=== PATIENT | female | born 1985 | race Caucasian/White ===

== ENCOUNTER 2016-11-12 09:10 | Emergency (ER) | payer OTHER ==
[2016-11-12] MEDS ORDERED: IBUPROFEN 600 MG TAB As Ordered ONE (09:50)
[2016-11-12] MEDS ORDERED: IPRATROPIUM 0.5MG/ALBUTEROL 2.5MG INH SOL UD 3ML (DUONEB)(J7620) As Ordered ONE (09:51)
[2016-11-12 10:05] LABS: MEAN CORPUSCULAR HEMOGLOBIN 28.9 pg (27.0-33.0); MEAN CORPUSCULAR VOLUME 84.9 fl (80.0-96.0); RED CELL DISTRIBUTION WIDTH 12.8 % (11.5-14.5); WHITE BLOOD COUNT 7.5 K/mm3 (4.0-10.0)
[2016-11-12 10:34] LABS: ANION GAP 10 MEQ/L (8-16); BLOOD UREA NITROGEN 11 MG/DL (7-18); CALCIUM LEVEL 8.7 MG/DL (8.5-10.1); CARBON DIOXIDE LEVEL 23 MEQ/L (21-32); CHLORIDE LEVEL 108 MEQ/L (98-107); CREATININE FOR GFR 0.71 MG/DL (0.55-1.02); GLOMERULAR FILTRATION RATE > 60.0 (>60); GLUCOSE, FASTING 90 MG/DL (70-105); POTASSIUM SERUM 4.2 MEQ/L (3.5-5.1); SODIUM LEVEL 141 MEQ/L (136-145)
--- NOTE | 2016-11-12 10:50 | REP ---
Clinical: Chest pain . Comparison: None . Technique: PA and lateral. Findings: The mediastinum and cardiac silhouette are normal. The lung stallings are clear and without acute consolidation, effusion, or pneumothorax. The skeletal structures are intact and normal. Impression: 1. No acute cardiopulmonary process. Signed by Lincoln Hood MD 11/12/2016 10:41 A
--- NOTE | 2016-11-12 11:19 | EDDOCDS ---
Physician Documentation [facility] Name: Harmony Camara Age: 31 yrs Sex: Female : 1985 Arrival Date: 11/12/2016 Time: 09:10 Bed PD Private MD: Other - Complete Info On Cds Disposition: 11/12/16 10:51 Discharged to Home/Self Care. Impression: Pleurisy. - Condition is Stable. - Discharge Instructions: Pleurisy. - Prescriptions for Ibuprofen 600 mg Oral Tablet - take 1 tablet by ORAL route every 6 hours As needed take with food; 30 tablet. - Medication Reconciliation, Local Pharmacy Hours form. - Follow up: HALEY Whyte; When: 2 - 3 days; Reason: Recheck today's complaints, Continuance of care. - Problem is new. - Symptoms are unchanged. Historical: - Allergies: PENICILLINS; Ambien; Latex; - Home Meds: 1. Albuterol Inhl as needed - PMHx: Asthma; - PSHx: ; Appendectomy; Tubal ligation; - Social history: Smoking status: Patient states was never smoker of tobacco. No barriers to communication noted, The patient speaks fluent Estonian, Speaks appropriately for age. - Family history: Not pertinent. - : The pt / caregiver states he / she is not on anticoagulants. Home medication list is obtained from the patient. - Exposure Risk Screening:: None identified. 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 5 in. (165.10 cm) (R); Pain 4/10; 11:16 BP 134 / 70; Pulse 81; Resp 18; Temp 99.7(TE); Pulse Ox 98% on R/A; Pain 0/10; ar3 09:12 Body Mass Index 32.95 (89.81 kg, 165.10 cm) gr2 MDM: 09:42 Albuterol-Ipratropium 3 ml Inhalation once ordered. ke 09:42 Call Respiratory ordered. ke 09:42 Ibuprofen 600 mg PO once ordered. ke 09:43 CIP Ordered. EDMS 09:43 Troponin Ordered. EDMS 09:43 CBC Ordered. EDMS 09:43 BMP Ordered. EDMS 09:43 Chest, 2 View (pa\E\lat) Ordered. EDMS 09:47 Call Respiratory complete. jc4 09:51 Financial registration complete. lg 10:23 [facility] Payment Agreement was scanned into [employer] and attached to record. lg 10:45 BMP Reviewed. ke 10:45 CIP Reviewed. ke 10:45 Troponin Reviewed. ke 10:45 CBC Reviewed. ke Administered Medications: 09:54 Drug: Ibuprofen 600 mg [ibuprofen 600 mg tablet (1 tabs)] Route: PO; jc4 09:56 Drug: Albuterol-Ipratropium 3 ml [ipratropium-albuterol 0.5 mg-3 mg(2.5 mg base)/3 mL js11 nebulization soln (3 mL)] Route: Inhalation; Signatures: Dispatcher [employer] EDMS Stacy Bone, Reg Reg lg Jamil Rahman, FRUIT FARMWORKER FRUIT FARMWORKER Elise Quinteros RN RN jc4 Nanette Bocanegra,RN RN Amilcar Dodge js11 The chart was reviewed and I authenticate all verbal orders and agree with the evaluation and treatment provided.Attachments: 10:23 [facility] Payment Agreement lg MTDD
--- NOTE | 2016-11-12 11:19 | EDDOCDS ---
Nurse's Notes [facility] Name: Harmony Camara Age: 31 yrs Sex: Female : 1985 Arrival Date: 11/12/2016 Time: 09:10 Bed PD Private MD: Other - Complete Info On Cds Diagnosis: Pleurisy Presentation: 11/12 09:18 Presenting complaint: Patient states: pt reports when going out in the cold last night ead and this morning she felt chest tightness and sob. denies cough or congestion. denies sob/chest pain while sitting inside. Pt called her primary care and was instructed to come here. Adult Sepsis Screening: The patient does not have new or worsening altered mentation. Patient's respiratory rate is less than 22. Systolic blood pressure is greater than 100. Patient has a qSOFA score of 0- Negative Sepsis Screen. Suicide/Homicide risk assessment- the patient denies having any suicidal and/or homicidal ideations and does not present with any other emotional, behavioral or mental health complaints. Status: The patient is a dependent. Transition of care: patient was not received from another setting of care. 09:18 Acuity: LAWSON Level 3 ead 09:18 Method Of Arrival: Walkin/Carried/Asstd ead Triage Assessment: 09:22 General: Appears in no apparent distress, comfortable, Behavior is appropriate for age, ead cooperative. Pain: Location: chest Pain currently is 3 out of 10 on a pain scale. HIV screening NA for this visit Offered previously. Neurological: No deficits noted. Cardiovascular: Capillary refill < 3 seconds. Respiratory: Onset: The symptoms/episode began/occurred yesterday, Airway is patent Respiratory effort is even, unlabored. Derm: Skin is pink, warm & dry. 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 Albuterol Inhl as needed - PMHx: Asthma; - PSHx: ; Appendectomy; Tubal ligation; - Social history: Smoking status: Patient states was never smoker of tobacco. No barriers to communication noted, The patient speaks fluent Telugu, Speaks appropriately for age. - Family history: Not pertinent. - : The pt / caregiver states he / she is not on anticoagulants. Home medication list is obtained from the patient. - Exposure Risk Screening:: None identified. Screenin:54 Screening information is obtained from the patient. Fall risk: No risks identified. jc4 Assistance ADL's: requires no assistance with activities of daily living. home support is adequate. 09:55 Abuse/DV Screen: The patient / caregiver reports he/she is: not in a situation that jc4 causes fear, pain or injury. Nutritional screening: No deficits noted. Advance Directives: Currently, there is no health care proxy. There is no active DNR order. There is no living will. There is no Power of Osteopathy Doctor. Assessment: 09:56 General: Appears in no apparent distress, comfortable, Behavior is cooperative, jc4 pleasant. Neurological: Level of Consciousness is awake, alert, Oriented to person, place, time. Cardiovascular: Heart tones S1 S2 present. Respiratory: Airway is patent Respiratory effort is even, unlabored, Respiratory pattern is regular, symmetrical, Breath sounds are clear bilaterally. Derm: Skin is pink, warm & dry. 11:17 General: Appears in no apparent distress, Behavior is cooperative, pleasant. jc4 Neurological: Level of Consciousness is awake, alert, Oriented to person, place, time. Respiratory: Airway is patent Respiratory effort is even, unlabored, Respiratory pattern is regular, symmetrical. Derm: Skin is pink, warm & dry. Vital Signs: 09:12 BP 105 / 70; Pulse 90; Resp 18 S; Temp 97.2(O); Pulse Ox 100% on R/A; Weight 89.81 kg gr2 (R); Height 5 ft. 5 in. (165.10 cm) (R); Pain 4/10; 11:16 BP 134 / 70; Pulse 81; Resp 18; Temp 99.7(TE); Pulse Ox 98% on R/A; Pain 0/10; ar3 09:12 Body Mass Index 32.95 (89.81 kg, 165.10 cm) gr2 Vitals: 09:12 Log In Time: November 12, 2016 at 09:12. gr2 ED Course: 09:11 Patient visited by Shay Michaels. gr2 09:11 Patient moved to Waiting gr2 09:12 Other - Complete Info On Cds is Private Physician. gr2 09:13 Patient visited by Shay Michaels. gr2 09:13 Patient moved to Pre RCE gr2 09:21 Triage Initiated ead 09:36 Patient moved to Triage 1 jc4 09:37 [facility] ke 09:37 Patient visited by Jamil Rahman FNP. ke 09:37 Patient visited by Jamil Rahman FNP. ke 09:46 Patient moved to PD / jc4 09:57 The patient / caregiver is instructed regarding the plan of care and ED course. jc4 10:10 Patient visited by Jamil Rahman FNP. ke 10:22 Patient name changed from Harmony\S\\S\Stock\S\ to Harmony\S\Tania\S\Stock. EDMS 10:23 [facility] Payment Agreement was scanned into [email or web address] and attached to record. lg 10:35 Patient visited by Jamil Rahman FNP. ke 10:50 Pato [facility] is Referral Physician. ke 10:59 Chest, 2 View (pa\E\lat) Returned. EDMS 11:16 Patient visited by Barbara Belcher PCA. ar3 11:18 No IV's were initiated during this patient's visit. No procedures done that require [facility] assistance. Administered Medications: 09:54 Drug: Ibuprofen 600 mg [ibuprofen 600 mg tablet (1 tabs)] Route: PO; jc4 09:56 Drug: Albuterol-Ipratropium 3 ml [ipratropium-albuterol 0.5 mg-3 mg(2.5 mg base)/3 mL js11 nebulization soln (3 mL)] Route: Inhalation; RT: 09:56 Initial Med Neb Given as ordered Patient was instructed and evaluated on procedure js11 Patient tolerated procedure well without adverse effect. Oxygen is room air. Respiratory: Breath sounds are clear bilaterally. Order Results: Lab Order: CIP; SPEC'M 11/12/16 09:54 Test: CPK CREATINE PHOSPHOKINASE; Value: 94; Range: 26-192; Units: U/L; Status: F Test: CK-MB VALUE MASS; Value: 1.0; Range: 0.0-3.6; Units: NG/ML; Status: F Test: MB/CK RELATIVE INDEX; Value: 1.06; Range: < OR =4; Status: F Test Note: ; DIAGNOSIS CRITERIA MMB ng/ml Relative Index (RI) NON-AMI < or = 5 N/A [place] > 5 < or = 4 AMI > 5 > 4 Lab Order: Troponin; SPEC11/12/16 09:54 Test: TROPONIN I; Value: < 0.02; Range: < 0.10; Units: NG/ML; Status: F Test Note: ; Troponin I Reference Interval for [employer] LOCI: 99th Percentile= 0.00-0.045 ng/ml Risk Stratification: <= 0.10 ng/ml Decreased Risk for Adverse Clinical Events. 0.10-1.50 ng/ml Increased Risk for Adverse Clinical Events. Evaluation of additional criterion and/or repeat testing in 2-6 hours is suggested to rule out myocardial damage. >= 1.50 ng/ml Indicative of Myocardial Injury. Lab Order: CBC; SPEC11/12/16 09:54 Test: WHITE BLOOD COUNT; Value: 7.5; Range: 4.0-10.0; Units: K/mm3; Status: F Test: RED BLOOD COUNT; Value: 4.81; Range: 4.00-5.40; Units: M/mm3; Status: F Test: HEMOGLOBIN; Value: 13.9; Range: 12.0-16.0; Units: g/dl; Status: F Test: HEMATOCRIT; Value: 40.9; Range: 36.0-47.0; Units: %; Status: F Test: MEAN CORPUSCULAR VOLUME; Value: 84.9; Range: 80.0-96.0; Units: fl; Status: F Test: MEAN CORPUSCULAR HEMOGLOBIN; Value: 28.9; Range: 27.0-33.0; Units: pg; Status: F Test: MEAN CORPUSCULAR HGB CONC; Value: 34.0; Range: 32.0-36.5; Units: g/dl; Status: F Test: RED CELL DISTRIBUTION WIDTH; Value: 12.8; Range: 11.5-14.5; Units: %; Status: F Test: PLATELET COUNT, AUTOMATED; Value: 187; Range: 150-450; Units: k/mm3; Status: F Lab Order: BMP; SPEC11/12/16 09:54 Test: GLUCOSE, FASTING; Value: 90; Range: 70-105; Units: MG/DL; Status: F Test: BLOOD UREA NITROGEN; Value: 11; Range: 7-18; Units: MG/DL; Status: F Test: CREATININE FOR GFR; Value: 0.71; Range: 0.55-1.02; Units: MG/DL; Status: F Test: GLOMERULAR FILTRATION RATE; Value: > 60.0; Range: >60; Status: F Test: SODIUM LEVEL; Value: 141; Range: 136-145; Units: MEQ/L; Status: F Test: POTASSIUM SERUM; Value: 4.2; Range: 3.5-5.1; Units: MEQ/L; Status: F Test: CHLORIDE LEVEL; Value: 108; Range: 98-107; Abnormal: Above high normal; Units: MEQ/L; Status: F Test: CARBON DIOXIDE LEVEL; Value: 23; Range: 21-32; Units: MEQ/L; Status: F Test: ANION GAP; Value: 10; Range: 8-16; Units: MEQ/L; Status: F Test: CALCIUM LEVEL; Value: 8.7; Range: 8.5-10.1; Units: MG/DL; Status: F Test Note: ; Units are mL/min/1.73 m2 Chronic Kidney Disease Staging per NKF: Stage I & II GFR >=60 Normal to Mildly Decreased Stage III GFR 30-59 Moderately Decreased Stage IV GFR 15-29 Severely Decreased Stage V GFR <15 Very Little GFR Left ESRD GFR <15 on PROP CUTTER Radiology Order: Chest, 2 View (pa\E\lat) Test: Chest, 2 View (pa\E\lat) REASON FOR EXAMINATION: Chest Pain; Clinical: Chest pain .; ; Comparison: None .; ; Technique: PA and lateral.; ; Findings:; The mediastinum and cardiac silhouette are normal. The lung stallings are clear and; without acute consolidation, effusion, or pneumothorax. The skeletal structures; are intact and normal.; ; Impression:; 1. No acute cardiopulmonary process.; ; ; Signed by; Lincoln Hood MD 11/12/2016 10:41 A; Outcome: 10:51 Discharge ordered by Provider. ke 11:18 Discharge Assessment: Patient awake, alert and oriented x 3. No cognitive and/or jc4 functional deficits noted. Patient verbalized understanding of disposition instructions. patient administered narcotics - no. The following High Risk Discharge criteria are identified: None. Discharged to home ambulatory. Condition: stable. Discharge instructions given to patient, Instructed on discharge instructions, follow up and referral plans. medication usage, Demonstrated understanding of instructions, medications, Pt was receptive of discharge instructions/ teaching. No special radiology studies were completed. Property :Personal belongings accompany Pt. 11:19 Patient left the ED. jc4 Signatures: Dispatcher [employer] EDMS Stacy Bone, Len Reg lg Jamil Rahman, TECHNOLOGY PROJECT MANAGER TECHNOLOGY PROJECT MANAGER Barbara Smith, RENA BOUNTY TRAPPER ar3 Elise Rouse, RN RN jc4 Amilcar Nix js11 Shay Michaels gr2 Nanette Bocanegra,RN RN ead MTDD
--- NOTE | 2016-11-14 12:19 | EDDOCDS ---
Physician Documentation [facility] Name: Harmony Camara Age: 31 yrs Sex: Female : 1985 Arrival Date: 11/12/2016 Time: 09:10 Bed PD Private MD: Other - Complete Info On Cds Disposition: 11/12/16 10:51 Discharged to Home/Self Care. Impression: Pleurisy. - Condition is Stable. - Discharge Instructions: Pleurisy. - Prescriptions for Ibuprofen 600 mg Oral Tablet - take 1 tablet by ORAL route every 6 hours As needed take with food; 30 tablet. - Medication Reconciliation, Local Pharmacy Hours form. - Follow up: HALEY Whyte; When: 2 - 3 days; Reason: Recheck today's complaints, Continuance of care. - Problem is new. - Symptoms are unchanged. Historical: - Allergies: PENICILLINS; Ambien; Latex; - Home Meds: 1. Albuterol Inhl as needed - PMHx: Asthma; - PSHx: ; Appendectomy; Tubal ligation; - Social history: Smoking status: Patient states was never smoker of tobacco. No barriers to communication noted, The patient speaks fluent Mohawk, Speaks appropriately for age. - Family history: Not pertinent. - : The pt / caregiver states he / she is not on anticoagulants. Home medication list is obtained from the patient. - Exposure Risk Screening:: None identified. 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 5 in. (165.10 cm) (R); Pain 4/10; 11:16 BP 134 / 70; Pulse 81; Resp 18; Temp 99.7(TE); Pulse Ox 98% on R/A; Pain 0/10; ar3 09:12 Body Mass Index 32.95 (89.81 kg, 165.10 cm) gr2 MDM: 09:42 Albuterol-Ipratropium 3 ml Inhalation once ordered. ke 09:42 Call Respiratory ordered. ke 09:42 Ibuprofen 600 mg PO once ordered. ke 09:43 CIP Ordered. EDMS 09:43 Troponin Ordered. EDMS 09:43 CBC Ordered. EDMS 09:43 BMP Ordered. EDMS 09:43 Chest, 2 View (pa\E\lat) Ordered. EDMS 09:47 Call Respiratory complete. jc4 09:51 Financial registration complete. lg 10:23 [facility] Payment Agreement was scanned into [employer] and attached to record. lg 10:45 BMP Reviewed. ke 10:45 CIP Reviewed. ke 10:45 Troponin Reviewed. ke 10:45 CBC Reviewed. ke 13:27 T-Sheet-- Draft Copy was scanned into [employer] and attached to record. gb Administered Medications: 09:54 Drug: Ibuprofen 600 mg [ibuprofen 600 mg tablet (1 tabs)] Route: PO; jc4 09:56 Drug: Albuterol-Ipratropium 3 ml [ipratropium-albuterol 0.5 mg-3 mg(2.5 mg base)/3 mL js11 nebulization soln (3 mL)] Route: Inhalation; Signatures: Dispatcher [employer] EDMS Isabelle Barriga, Reg Reg gb Stacy Bone, Reg Reg lg Jamil Rahman, POINT OF CARE TECHNICIAN POINT OF CARE TECHNICIAN Elise Quinteros RN RN jc4 Nanette Bocanegra,RN RN Amilcar Dodge js11 The chart was reviewed and I authenticate all verbal orders and agree with the evaluation and treatment provided.Attachments: 10:23 [facility] Payment Agreement lg 13:27 T-Sheet-- Draft Copy gb Chart Complete MTDD
--- NOTE | 2016-11-14 12:19 | EDDOCDS ---
Physician Documentation [facility] Name: Harmony Camara Age: 31 yrs Sex: Female : 1985 Arrival Date: 11/12/2016 Time: 09:10 Bed PD Private MD: Other - Complete Info On Cds Disposition: 11/12/16 10:51 Discharged to Home/Self Care. Impression: Pleurisy. - Condition is Stable. - Discharge Instructions: Pleurisy. - Prescriptions for Ibuprofen 600 mg Oral Tablet - take 1 tablet by ORAL route every 6 hours As needed take with food; 30 tablet. - Medication Reconciliation, Local Pharmacy Hours form. - Follow up: HALEY Whyte; When: 2 - 3 days; Reason: Recheck today's complaints, Continuance of care. - Problem is new. - Symptoms are unchanged. Historical: - Allergies: PENICILLINS; Ambien; Latex; - Home Meds: 1. Albuterol Inhl as needed - PMHx: Asthma; - PSHx: ; Appendectomy; Tubal ligation; - Social history: Smoking status: Patient states was never smoker of tobacco. No barriers to communication noted, The patient speaks fluent Japanese, Speaks appropriately for age. - Family history: Not pertinent. - : The pt / caregiver states he / she is not on anticoagulants. Home medication list is obtained from the patient. - Exposure Risk Screening:: None identified. 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 5 in. (165.10 cm) (R); Pain 4/10; 11:16 BP 134 / 70; Pulse 81; Resp 18; Temp 99.7(TE); Pulse Ox 98% on R/A; Pain 0/10; ar3 09:12 Body Mass Index 32.95 (89.81 kg, 165.10 cm) gr2 MDM: 09:42 Albuterol-Ipratropium 3 ml Inhalation once ordered. ke 09:42 Call Respiratory ordered. ke 09:42 Ibuprofen 600 mg PO once ordered. ke 09:43 CIP Ordered. EDMS 09:43 Troponin Ordered. EDMS 09:43 CBC Ordered. EDMS 09:43 BMP Ordered. EDMS 09:43 Chest, 2 View (pa\E\lat) Ordered. EDMS 09:47 Call Respiratory complete. jc4 09:51 Financial registration complete. lg 10:23 [facility] Payment Agreement was scanned into [employer] and attached to record. lg 10:45 BMP Reviewed. ke 10:45 CIP Reviewed. ke 10:45 Troponin Reviewed. ke 10:45 CBC Reviewed. ke 13:27 T-Sheet-- Draft Copy was scanned into [employer] and attached to record. gb Administered Medications: 09:54 Drug: Ibuprofen 600 mg [ibuprofen 600 mg tablet (1 tabs)] Route: PO; jc4 09:56 Drug: Albuterol-Ipratropium 3 ml [ipratropium-albuterol 0.5 mg-3 mg(2.5 mg base)/3 mL js11 nebulization soln (3 mL)] Route: Inhalation; Signatures: Dispatcher [employer] EDMS Isabelle Barriga, Reg Reg gb Stacy Bone, Reg Reg lg Jamil Rahman, CLAY MINER CLAY MINER Elise Quinteros RN RN jc4 Nanette Bocanegra,RN RN Amilcar Dodge js11 The chart was reviewed and I authenticate all verbal orders and agree with the evaluation and treatment provided.Attachments: 10:23 [facility] Payment Agreement lg 13:27 T-Sheet-- Draft Copy gb Chart Complete MTDD
--- NOTE | 2016-11-14 12:19 | EDDOCDS ---
Nurse's Notes [facility] Name: Harmony Camara Age: 31 yrs Sex: Female : 1985 Arrival Date: 11/12/2016 Time: 09:10 Bed PD Private MD: Other - Complete Info On Cds Diagnosis: Pleurisy Presentation: 11/12 09:18 Presenting complaint: Patient states: pt reports when going out in the cold last night ead and this morning she felt chest tightness and sob. denies cough or congestion. denies sob/chest pain while sitting inside. Pt called her primary care and was instructed to come here. Adult Sepsis Screening: The patient does not have new or worsening altered mentation. Patient's respiratory rate is less than 22. Systolic blood pressure is greater than 100. Patient has a qSOFA score of 0- Negative Sepsis Screen. Suicide/Homicide risk assessment- the patient denies having any suicidal and/or homicidal ideations and does not present with any other emotional, behavioral or mental health complaints. Status: The patient is a dependent. Transition of care: patient was not received from another setting of care. 09:18 Acuity: LAWSON Level 3 ead 09:18 Method Of Arrival: Walkin/Carried/Asstd ead Triage Assessment: 09:22 General: Appears in no apparent distress, comfortable, Behavior is appropriate for age, ead cooperative. Pain: Location: chest Pain currently is 3 out of 10 on a pain scale. HIV screening NA for this visit Offered previously. Neurological: No deficits noted. Cardiovascular: Capillary refill < 3 seconds. Respiratory: Onset: The symptoms/episode began/occurred yesterday, Airway is patent Respiratory effort is even, unlabored. Derm: Skin is pink, warm & dry. PEER SPECIALIST: 09:22 LMP 10/2016 ead Historical: - Allergies: PENICILLINS; Ambien; Latex; - Home Meds: 1. Albuterol Inhl as needed - PMHx: Asthma; - PSHx: ; Appendectomy; Tubal ligation; - Social history: Smoking status: Patient states was never smoker of tobacco. No barriers to communication noted, The patient speaks fluent German, Speaks appropriately for age. - Family history: Not pertinent. - : The pt / caregiver states he / she is not on anticoagulants. Home medication list is obtained from the patient. - Exposure Risk Screening:: None identified. Screenin:54 Screening information is obtained from the patient. Fall risk: No risks identified. jc4 Assistance ADL's: requires no assistance with activities of daily living. home support is adequate. 09:55 Abuse/DV Screen: The patient / caregiver reports he/she is: not in a situation that jc4 causes fear, pain or injury. Nutritional screening: No deficits noted. Advance Directives: Currently, there is no health care proxy. There is no active DNR order. There is no living will. There is no Power of Curriculum And Instruction Director. Assessment: 09:56 General: Appears in no apparent distress, comfortable, Behavior is cooperative, jc4 pleasant. Neurological: Level of Consciousness is awake, alert, Oriented to person, place, time. Cardiovascular: Heart tones S1 S2 present. Respiratory: Airway is patent Respiratory effort is even, unlabored, Respiratory pattern is regular, symmetrical, Breath sounds are clear bilaterally. Derm: Skin is pink, warm & dry. 11:17 General: Appears in no apparent distress, Behavior is cooperative, pleasant. jc4 Neurological: Level of Consciousness is awake, alert, Oriented to person, place, time. Respiratory: Airway is patent Respiratory effort is even, unlabored, Respiratory pattern is regular, symmetrical. Derm: Skin is pink, warm & dry. Vital Signs: 09:12 BP 105 / 70; Pulse 90; Resp 18 S; Temp 97.2(O); Pulse Ox 100% on R/A; Weight 89.81 kg gr2 (R); Height 5 ft. 5 in. (165.10 cm) (R); Pain 4/10; 11:16 BP 134 / 70; Pulse 81; Resp 18; Temp 99.7(TE); Pulse Ox 98% on R/A; Pain 0/10; ar3 09:12 Body Mass Index 32.95 (89.81 kg, 165.10 cm) gr2 Vitals: 09:12 Log In Time: November 12, 2016 at 09:12. gr2 ED Course: 09:11 Patient visited by Shay Michaels. gr2 09:11 Patient moved to Waiting gr2 09:12 Other - Complete Info On Cds is Private Physician. gr2 09:13 Patient visited by Shay Michaels. gr2 09:13 Patient moved to Pre RCE gr2 09:21 Triage Initiated ead 09:36 Patient moved to Triage 1 jc4 09:37 [facility] ke 09:37 Patient visited by Jamil Rahman FNP. ke 09:37 Patient visited by Jamil Rahman FNP. ke 09:46 Patient moved to PD jc4 09:57 The patient / caregiver is instructed regarding the plan of care and ED course. jc4 10:10 Patient visited by Jamil Rahman FNP. ke 10:22 Patient name changed from Harmony\S\\S\Stock\S\ to Harmony\S\Tania\S\Stock. EDMS 10:23 [facility] [place] Payment Agreement was scanned into [employer] and attached to record. lg 10:35 Patient visited by Jamli Rahman FNP. ke 10:50 [place] [facility] [place] Physician. ke 10:59 Chest, 2 View (pa\E\lat) Returned. EDMS 11:16 Patient visited by Barbara Belcher PCA. ar3 11:18 No IV's were initiated during this patient's visit. No procedures done that require [facility] assistance. 13:27 T-Sheet-- Draft Copy was scanned into [employer] and attached to record. gb Administered Medications: 09:54 Drug: Ibuprofen 600 mg [ibuprofen 600 mg tablet (1 tabs)] Route: PO; jc4 09:56 Drug: Albuterol-Ipratropium 3 ml [ipratropium-albuterol 0.5 mg-3 mg(2.5 mg base)/3 mL js11 nebulization soln (3 mL)] Route: Inhalation; RT: 09:56 Initial Med Neb Given as ordered Patient was instructed and evaluated on procedure js11 Patient tolerated procedure well without adverse effect. Oxygen is room air. Respiratory: Breath sounds are clear bilaterally. Order Results: Lab Order: CIP; SPEC'M 11/12/16 09:54 Test: CPK CREATINE PHOSPHOKINASE; Value: 94; Range: 26-192; Units: U/L; Status: F Test: CK-MB VALUE MASS; Value: 1.0; Range: 0.0-3.6; Units: NG/ML; Status: F Test: MB/CK RELATIVE INDEX; Value: 1.06; Range: < OR =4; Status: F Test Note: ; DIAGNOSIS CRITERIA MMB ng/ml Relative Index (RI) NON-AMI < or = 5 N/A [place] > 5 < or = 4 AMI > 5 > 4 Lab Order: Troponin; 11/12/16 09:54 Test: TROPONIN I; Value: < 0.02; Range: < 0.10; Units: NG/ML; Status: F Test Note: ; Troponin I Reference Interval for [employer] 3 LOCI: 99th Percentile= 0.00-0.045 ng/ml Risk Stratification: <= 0.10 ng/ml Decreased Risk for Adverse Clinical Events. 0.10-1.50 ng/ml Increased Risk for Adverse Clinical Events. Evaluation of additional criterion and/or repeat testing in 2-6 hours is suggested to rule out myocardial damage. >= 1.50 ng/ml Indicative of Myocardial Injury. Lab Order: CBC; 11/12/16 09:54 Test: WHITE BLOOD COUNT; Value: 7.5; Range: 4.0-10.0; Units: K/mm3; Status: F Test: RED BLOOD COUNT; Value: 4.81; Range: 4.00-5.40; Units: M/mm3; Status: F Test: HEMOGLOBIN; Value: 13.9; Range: 12.0-16.0; Units: g/dl; Status: F Test: HEMATOCRIT; Value: 40.9; Range: 36.0-47.0; Units: %; Status: F Test: MEAN CORPUSCULAR VOLUME; Value: 84.9; Range: 80.0-96.0; Units: fl; Status: F Test: MEAN CORPUSCULAR HEMOGLOBIN; Value: 28.9; Range: 27.0-33.0; Units: pg; Status: F Test: MEAN CORPUSCULAR HGB CONC; Value: 34.0; Range: 32.0-36.5; Units: g/dl; Status: F Test: RED CELL DISTRIBUTION WIDTH; Value: 12.8; Range: 11.5-14.5; Units: %; Status: F Test: PLATELET COUNT, AUTOMATED; Value: 187; Range: 150-450; Units: k/mm3; Status: F Lab Order: BMP; 11/12/16 09:54 Test: GLUCOSE, FASTING; Value: 90; Range: 70-105; Units: MG/DL; Status: F Test: BLOOD UREA NITROGEN; Value: 11; Range: 7-18; Units: MG/DL; Status: F Test: CREATININE FOR GFR; Value: 0.71; Range: 0.55-1.02; Units: MG/DL; Status: F Test: GLOMERULAR FILTRATION RATE; Value: > 60.0; Range: >60; Status: F Test: SODIUM LEVEL; Value: 141; Range: 136-145; Units: MEQ/L; Status: F Test: POTASSIUM SERUM; Value: 4.2; Range: 3.5-5.1; Units: MEQ/L; Status: F Test: CHLORIDE LEVEL; Value: 108; Range: 98-107; Abnormal: Above high normal; Units: MEQ/L; Status: F Test: CARBON DIOXIDE LEVEL; Value: 23; Range: 21-32; Units: MEQ/L; Status: F Test: ANION GAP; Value: 10; Range: 8-16; Units: MEQ/L; Status: F Test: CALCIUM LEVEL; Value: 8.7; Range: 8.5-10.1; Units: MG/DL; Status: F Test Note: ; Units are mL/min/1.73 m2 Chronic Kidney Disease Staging per NKF: Stage I & II GFR >=60 Normal to Mildly Decreased Stage III GFR 30-59 Moderately Decreased Stage IV GFR 15-29 Severely Decreased Stage V GFR <15 Very Little GFR Left ESRD GFR <15 on ELECTRONIC PAGE MAKEUP SYSTEM OPERATOR Radiology Order: Chest, 2 View (pa\E\lat) Test: Chest, 2 View (pa\E\lat) REASON FOR EXAMINATION: Chest Pain; Clinical: Chest pain .; ; Comparison: None .; ; Technique: PA and lateral.; ; Findings:; The mediastinum and cardiac silhouette are normal. The lung stallings are clear and; without acute consolidation, effusion, or pneumothorax. The skeletal structures; are intact and normal.; ; Impression:; 1. No acute cardiopulmonary process.; ; ; Signed by; Lincoln Hood MD 11/12/2016 10:41 A; Outcome: 10:51 Discharge ordered by Provider. cristhian 11:18 Discharge Assessment: Patient awake, alert and oriented x 3. No cognitive and/or jc4 functional deficits noted. Patient verbalized understanding of disposition instructions. patient administered narcotics - no. The following High Risk Discharge criteria are identified: None. Discharged to home ambulatory. Condition: stable. Discharge instructions given to patient, Instructed on discharge instructions, follow up and referral plans. medication usage, Demonstrated understanding of instructions, medications, Pt was receptive of discharge instructions/ teaching. No special radiology studies were completed. Property :Personal belongings accompany Pt. 11:19 Patient left the ED. jc4 Signatures: Dispatcher [employer] EDMS Isabelle Barriga, Reg Reg gb Stacy oBne, Reg Reg lg Jamil Rahman, POWDER MILL OPERATOR POWDER MILL OPERATOR ke Barbara Belcher, CHURN TENDER CHURN TENDER ar3 Elise Rouse, RN RN jc4 Amilcar Nix js11 Sahy Michaels gr2 Nanette Bocanegra,RN RN emilyd Chart Complete JHONNYD
== END 2016-11-12 11:19 | disposition home or self-care (01) ==
LOC: EDBD 09:10 → M ED 09:10
DX: R09.1 Pleurisy (principal); J45.909 Unspecified asthma, uncomplicated; Z90.89 Acquired absence of other organs; Z88.0 Allergy status to penicillin; Z88.8 Allergy status to other drugs, medicaments and biological substances; Z91.040 Latex allergy status

== ENCOUNTER → 2019-03-26 | Outpatient (CLI) | payer OTHER ==
--- NOTE | 2019-03-26 18:39 | REP ---
Clinical: Cough and fever. Technique: PA and lateral. Comparison: 11/12/2016. Findings: Lingular infiltrate compatible with pneumonia. No effusion. No pneumothorax. Mediastinum and cardiac silhouette are within normal limits and stable. Skeletal structures intact. Impression: Lingular infiltrate/pneumonia. Follow-up to resolution recommended to exclude further pathology. Electronically Signed by Lincoln Hood MD 03/26/2019 06:29 P
== END ==
LOC: M LRY 18:16
PROVIDERS: ATTEND Physician Assistant
DX: J18.9 Pneumonia, unspecified organism (principal)
CPT/HCPCS: 71046; G0463

== ENCOUNTER → 2019-11-30 | Outpatient (REF) | payer OTHER | LOC: M SFHCLERA 13:59 | PROVIDERS: ATTEND Nurse Practitioner Family | DX: J02.9 Acute pharyngitis, unspecified (principal) ==